=== PATIENT | female | born 1930 | race Caucasian/White ===

== ENCOUNTER 2016-04-07 06:58 | Emergency (ER) | payer OTHER ==
--- NOTE | 2016-04-07 07:05 | EDPHY ---
H & P Time Seen by Provider: 04/07/16 07:04 - Medical/Surgical History Hx Asthma: No Hx Chronic Respiratory Disease: Yes Hx Diabetes: No Hx Cardiac Disease: No Hx Renal Disease: No Hx Cirrhosis: No Hx Alcoholism: No Hx HIV/AIDS: No Hx Splenectomy or Spleen Trauma: No Other PMH: hyperlipidemia, COPD, Hypothyroidism - Social History Smoking Status: Former smoker Constitutional: Initial Vital Signs Temperature (C) 36.7 C 04/07/16 07:07 Heart Rate 67 04/07/16 07:07 Respiratory Rate 16 04/07/16 07:07 Blood Pressure 159/105 H 04/07/16 07:07 O2 Sat (%) 92 04/07/16 07:07 O2 Delivery Mode Room Air O2 (L/minute) 2 Allergies/Adverse Reactions: cephalexin monohydrate [From Keflex] Allergy (Verified 10/14/14 09:42) codeine Allergy (Verified 04/07/16 07:14) Home Medications: Medication Instructions Recorded Albuterol 02/20/14 Cholesterol Med 02/20/14 Spiriva Inhaler (RX) 02/20/14 THYROID 02/20/14 Hydrocodone/APAP 5/325 [Mobile 1 - 2 each PO Q4-6PRN PRN #20 tab 04/07/16 5/325] Medical Decision Making ED Course/Re-evaluation: CHIEF COMPLAINT: Fall, rib and flank pain HISTORY OF PRESENT ILLNESS: The patient is an 86 y/o female, with a history of COPD, arriving via EMS from [facility] complaining of left flank and rib pain secondary to a fall this morning. Per EMS, she walked to the bathroom and slipped on the floor early this morning. She fell backwards onto the bathtub and struck her left flank and was down for approximately an hour. She denies head strike, LOC, weakness or paresthesias. She was able to stand and walk to the pram with EMS assistance. She denies any preceding symptoms of chest pain, shortness of breath, or lightheadedness. Her pain now radiates to her left lateral ribs. She denies anticoagulant use. Reports regular bowel movements. REVIEW OF SYSTEMS: A 10 point review of systems was performed and is negative with the exception of the elements mentioned in the history of present illness. PHYSICAL EXAM: HR, BP, O2 Sat, RR. Temp noted General Appearance: Alert, well hydrated, appropriate, and non-toxic appearing. Head: Atraumatic without scalp tenderness or obvious injury Eyes: Pupils equal, round, reactive to light and accommodation, EOMI, no trauma , no injection. Ears: Clear bilaterally, no perforation, normal landmarks Nose: Atraumatic, no rhinorrhea, clear. Throat: There is no erythema or exudates, no lesions, normal tonsils, mucus membranes moist. Neck: Supple, 2+ carotid upstroke, nontender, no lymphadenopathy. Respiratory: No retractions, no distress, no wheezes, and no accessory muscle use. Lungs are clear to auscultation bilaterally. Cardiovascular: Regular rate and rhythm, no murmurs, rubs, or gallops. Bilateral carotid, radial, dorsalis pedis, and posterior tibial pulses intact. Good capillary refill all extremities. Gastrointestinal: Abdomen is soft, diffuse mild tenderness with associated distension, no masses, no rebound, no guarding, no peritoneal signs. Musculoskeletal: Normal active ROM of all extremities, atraumatic. Left lateral rib tenderness. Neurological: Alert, appropriate, and interactive. The patient has normal DTRs and non-focal cranial nerves, motor, sensory, and cerebellar exam. Skin: No rashes, good turgor, no nodules on palpation. Past medical history: COPD, breast cancer, arthritis, hyperlipidemia, hypothyroidism, on 2LPM home O2 chronically Past surgical history: knee replacement, "a whole bunch" of abdominal surgeries Family history: Noncontributory Social history: Lives at [facility] DIAGNOSTICS/PROCEDURES/CRITICAL CARE TIME: Study: CT of the Chest Indication: Pain, trauma Results: CT scan of the chest was obtained. The results of the study are 1. Nondisplaced fractures of posterior aspects of the left 10th and 11th ribs. 2. No pneumothorax, pleural effusion, or mediastinal hematoma. 3. Atherosclerotic aorta without aneurysm. 4. Multiple nonspecific noncalcified pulmonary nodules up to 8 mm in size with previous left mastectomy. Differential diagnosis includes pulmonary metastases versus noncalcified granulomata. Consider nuclear medicine PET scan imaging or follow up CT chest in 3 months and continued monitoring up to 2 years to ensure stability. 5. Old severe anterior wedge compression fracture T7 vertebral body with retropulsion. The study was read by the radiologist, Dr. Riley. I viewed the images myself on the PACS system. Study: CT of the Abdomen/Pelvis Indication: Pain, trauma, abd distension Results: CT scan of the abdomen was obtained. The results of the study are 1. Nondisplaced left 10th and 11th ribs. 2. Constipation. 3. No evidence of abdominal or pelvic hemorrhage or organ laceration. 4. Bilateral renal cysts. 5. Atherosclerotic aorta without aneurysm. 6. Left ovarian 3.1 x 2.6 cm cyst. Recommend follow up ultrasound in 3 months. The study was read by the radiologist, Dr. Riley. I viewed the images myself on the PACS system. Study: CT of the Lumbar Spine Indication: Pain, trauma Results: CT scan of the spine was obtained. The results of the study are 1. No acute lumbar compression fracture. 2. Thoracolumbar dextroscoliosis. 3. Multilevel mild to moderate degenerative disk disease and moderate to severe bilateral facet arthropathy resulting in multilevel mild to moderate central canal stenosis from L1-L2 through L4-L5 and variable multilevel neural foraminal stenosis, worse on the right at L5-S1. 4. Consider MRI of the lumbar spine if clinically indicated. The study was read by the radiologist, Dr. Riley. I viewed the images myself on the PACS system. Study: CT of the Thoracic Spine Indication: Pain, trauma Results: CT scan of the spine was obtained. The results of the study are 1. Old severe anterior wedge compression fracture of the T7 vertebral body with retropulsion causing mild to moderate central canal stenosis similar to chest x-ray from 2014. 2. No acute compression fractures. 3. If there is persistent pain or neurological deficit, recommend MR thoracic spine. The study was read by the radiologist, Dr. Riley. I viewed the images myself on the PACS system. DIFFERENTIAL DIAGNOSIS: The differential diagnosis for the patient's trauma included but was not limited to intracranial injury, long bone and pelvic bone fractures, spinal injury, intra-abdominal injury, and intra-thoracic injury. MEDICAL DECISION MAKING: This is a largely healthy 86 y/o female presenting to the ED after a mechanical fall onto a bathtub with 1-1.5 hour down time this morning. She denies preceding symptoms. She has left lateral rib tenderness and some diffuse mild abdominal tenderness and distension on exam. She is neurovascularly intact and breath sounds normal. IV established. Labs drawn including CHEM, INR. Plan for lumbar, thoracic, abdomen/pelvis, and chest CTs. 1 tab PO Mobile administered for pain. Patient's CTs show nondisplaced rib fractures and pulmonary nodules requiring follow up in 3 months. She will be discharged home with Vicodin and recommendation to follow up with her PCP this week. Return precautions given. She is comfortable with this plan. - Data Points Laboratory Results: Laboratory Results 04/07/16 07:11 04/07/16 07:11 04/07/16 07:11 WBC 10.06 H 10^3/uL (3.80-9.50) RBC 4.78 10^6/uL (4.18-5.33) Hgb 14.7 g/dL (12.6-16.3) Hct 46.4 % (38.0-47.0) MCV 97.1 fL (81.5-99.8) MCH 30.8 pg (27.9-34.1) MCHC 31.7 L g/dL (32.4-36.7) RDW 12.4 % (11.5-15.2) Plt Count 221 10^3/uL (150-400) MPV 9.1 fL (8.7-11.7) Neut % (Auto) 84.6 H % (39.3-74.2) Lymph % (Auto) 7.7 L % (15.0-45.0) Stone % (Auto) 6.1 % (4.5-13.0) Eos % (Auto) 0.5 L % (0.6-7.6) Baso % (Auto) 0.6 % (0.3-1.7) Nucleat RBC Rel Count 0.0 % (0.0-0.2) Absolute Neuts (auto) 8.52 H 10^3/uL (1.70-6.50) Absolute Lymphs (auto) 0.77 L 10^3/uL (1.00-3.00) Absolute Monos (auto) 0.61 10^3/uL (0.30-0.80) Absolute Eos (auto) 0.05 10^3/uL (0.03-0.40) Absolute Basos (auto) 0.06 10^3/uL (0.02-0.10) Absolute Nucleated RBC 0.00 10^3/uL (0-0.01) Immature Gran % 0.5 % (0.0-1.1) Immature Gran # 0.05 10^3/uL (0.00-0.10) Sodium 146 H mEq/L (134-144) Potassium 4.7 mEq/L (3.5-5.2) Chloride 108 mEq/L (97-110) Carbon Dioxide 27 mEq/l (22-31) Anion Gap 11 mEq/L (8-16) BUN 19 mg/dL (7-23) Creatinine 0.8 mg/dL (0.6-1.0) Estimated GFR > 60 Glucose 104 H mg/dL (70-100) Calcium 9.5 mg/dL (8.5-10.4) Medications Given: Discontinued Medications Acetaminophen/Hydrocodone Bitart (Mobile 5/325) 1 tab PO EDNOW ONE Stop: 04/07/16 07:21 Last Admin: 04/07/16 07:25 Dose: 1 tab Departure - Departure Disposition: Home, Routine, Self-Care Clinical Impression: Left rib fracture Condition: Good Instructions: Rib Fracture (ED) Additional Instructions: 1. Take Vicodin as prescribed for pain. 2. Follow up with your primary care provider in one week. 3. Return to the ED for severe pain, difficulty breathing, or other worsening of condition. 4. Your chest CT showed some lung nodules that require follow up CT or PET scan in 3 months. Discuss this with your primary care provider. Referrals: Spring Stafford MD [Medical Doctor] - As per Instructions Prescriptions: Hydrocodone/APAP 5/325 [Mobile 5/325] 1 - 2 each PO Q4-6PRN PRN #20 tab PRN Reason: Pain, Moderate Report Scribed for: Leoncio Rivas Report Scribed by: Yasmin Goodman Date of Report: 04/07/16 Time of Report: 07:17
[2016-04-07] MEDS ORDERED: IOPAMIDOL (ISOVUE-300) 100 ML BTL IV ONE (07:14)
[2016-04-07 07:19] LABS: % IMMATURE GRANULYOCYTES 0.5 % (0.0-1.1); ABSOLUTE IMMATURE GRANULOCYTES 0.05 10^3/uL (0.00-0.10); ADD DIFF? NO; ADD MORPH? NO; ADD SCAN? NO; ATYPICAL LYMPHOCYTE FLAG 0 (0-99); FRAGMENT RBC FLAG 0 (0-99); HEMATOCRIT 46.4 % (38.0-47.0); HEMOGLOBIN 14.7 g/dL (12.6-16.3); LEFT SHIFT FLG 0 (0-99); LIPEMIA HEMOLYSIS FLAG 80 (0-99); MEAN CELL HEMOGLOBIN 30.8 pg (27.9-34.1); MEAN CELL HEMOGLOBIN CONCENTR. 31.7 g/dL (32.4-36.7); MEAN CELL VOLUME 97.1 fL (81.5-99.8); MEAN PLATELET VOLUME 9.1 fL (8.7-11.7); PLATELET CLUMPS FLAG 0 (0-99); PLATELET COUNT 221 10^3/uL (150-400); RED BLOOD CELL COUNT 4.78 10^6/uL (4.18-5.33); RED CELL DISTRIBUTION WIDTH 12.4 % (11.5-15.2)
[2016-04-07] MEDS ORDERED: HYDROCODONE/APAP 5/325 TAB PO ONE (07:20)
[2016-04-07 07:45] LABS: ANION GAP 11 mEq/L (8-16); CALCIUM 9.5 mg/dL (8.5-10.4); CARBON DIOXIDE 27 mEq/l (22-31); CHLORIDE 108 mEq/L (97-110); CREATININE 0.8 mg/dL (0.6-1.0); GLOMERULAR FILTRATION RATE > 60; GLUCOSE 104 mg/dL (70-100); POTASSIUM 4.7 mEq/L (3.5-5.2); SODIUM 146 mEq/L (134-144)
[2016-04-07 09:42] VITALS: RESP 18
--- NOTE | 2016-04-07 09:43 | CT ---
CT Scan of the Abdomen and Pelvis (With Contrast) 0758 hours History: Fall on bathtub with left-sided chest and abdominal pain, back pain. Technique: Axial computed tomographic images of the chest, abdomen and pelvis were obtained with the uneventful intravenous administration of 90 mL Isovue-300 contrast. No oral or rectal contrast which limits the study. Dose reduction techniques were utilized. CT Abdomen Findings: Lung bases: Suspect nondisplaced fractures of the posterior aspect of the left 10th and 11th ribs. No pleural effusion. Liver: Normal. Biliary system: No obstruction. Spleen: No splenic laceration. Pancreas: Normal. Adrenals: Normal. Kidneys: No obstruction or solid masses.. Several bilateral renal cysts with the largest right renal cyst lower pole posterior cortex measuring 7 cm. Left parapelvic cysts. No solid exophytic lesions. 3 mm nonobstructing calculus upper pole calyx right kidney. Abdominal Aorta: Moderate atherosclerotic aorta and iliac arteries without aneurysm. No bowel obstruction, ascites, or significant retroperitoneal lymphadenopathy. CT Pelvis Findings: No evidence of retroperitoneal hematoma. Moderate stool in the colon consistent w ith constipation. Left ovarian cyst measuring 3.1 x 2.6 cm. Impression: 1. Nondisplaced left 10th and 11th ribs. 2. Constipation. 3. No evidence of abdominal or pelvic hemorrhage or organ laceration. 4. Bilateral renal cysts. 5. Atherosclerotic aorta without aneurysm. 6. Left ovarian 3.1 x 2.6 cm cyst. Recommend follow up ultrasound in 3 months. Findings and recommendations discussed with Emergency Department physician, Dr. Leoncio Rivas at 0840 hours today. Final report concurs with initial preliminary interpretation.
--- NOTE | 2016-04-07 09:57 | CT ---
CT Scan of the Chest (With Contrast) at 0758 hours History: Fall on bathtub with left-sided chest and abdominal pain, back pain. Technique: Axial computed tomographic images of the chest, abdomen and pelvis were obtained with the uneventful intravenous administration of 90 mL Isovue-300 contrast. No oral or rectal contrast which limits the study. Dose reduction techniques were utilized. Findings: Heart is normal in size without pericardial effusion. Moderate atherosclerotic calcificatio n of the aorta without aneurysm or dissection. No mediastinal hematoma. No pericardiac hematoma. No p leural effusion or pneumothorax. Suspect nondisplaced fractures of the left 10th and 11th ribs extension worker olaterally. Previous left mastectomy with surgical clips in the left axillary region. Several nonspec [facility] noncalcified pulmonary nodules including a left upper lobe 6 mm noncalcified pulmonary nodule im age 35 of series 11, left upper lobe 3 mm pulmonary nodule image 67 of series 11. Lingular 8 mm nonca lcified pulmonary nodule image 122 of series 11. Right azygous lobe. Pleuroparenchymal scarring in th e anterior basal segment of the right lower lobe. Right lower lobe 4 mm noncalcified pulmonary nodule image 100 of series 11. Right lower lobe 3 mm noncalcified pulmonary nodule image 89 of series 11. No acute pneumonia. Bilateral peribronchial thickening consistent with chronic bronchitis. Degenerati ve osteophytes in the thoracic spine. Previous severe compression fracture T7 vertebral body identifi ed on chest x-ray January 2014. Impression: 1. Nondisplaced fractures of posterior aspects of the left 10th and 11th ribs. 2. No pneumothorax, pleural effusion, or mediastinal hematoma. 3. Atherosclerotic aorta without aneurysm. 4. Multiple nonspecific noncalcified pulmonary nodules up to 8 mm in size with previous left mastecto my. Differential diagnosis includes pulmonary metastases versus noncalcified granulomata. Consider [facility] medicine PET scan imaging or follow up CT chest in 3 months and continued monitoring up to 2 ye ars to ensure stability. 5. Old severe anterior wedge compression fracture T7 vertebral body with retropulsion. Findings and recommendations discussed with Emergency Department physician, Dr. Leoncio Rivas at 0840 hours today. Final report concurs with initial preliminary interpretation.
--- NOTE | 2016-04-07 10:05 | CT ---
CT Scan of the Thoracic Spine With Contrast With Multiplanar Reconstructions Clinical Indications: Fall, pain. Fall and hit bathtub, back pain, left-sided rib and abdominal pain . Comparison: Chest x-ray 2013. Technique: Thinly collimated multidetector helical CT imaging of the thoracic spine was performed af ter the CT chest, abdomen, and pelvis with contrast and was reviewed in multiple planes. Multiplanar reconstructions reviewed on [employer] workstation and performed to better evaluate alignment. Dose reduc tion techniques were utilized. Findings: Old severe anterior wedge compression fracture with vertebral plana of the T7 vertebral amy dy, sclerotic changes, and retropulsion 5 mm resulting in mild to moderate central canal stenosis. No acute compression fractures of the thoracic spine. T6-T7 moderate degenerative disk disease with moderate disk space narrowing, circumferential osteophy gato resulting in mild central canal stenosis without neural foraminal stenosis. Rest of the thoracic disk spaces demonstrate mild degenerative disk disease without significant bony central canal or neural foraminal stenosis. Mild old compression deformity of the T5 vertebral body s uperior endplate versus Schmorl nodes similar to previous studies from 2014. C7-T1 moderate degenerative disk disease with ventral osteophytes. Irregularity at C6-C7 which may be secondary to prior surgery but is only partially visualized. Consider additional CT cervical spine i maging if clinically indicated. Impression: 1. Old severe anterior wedge compression fracture of the T7 vertebral body with retropulsion causing mild to moderate central canal stenosis similar to chest x-ray from 2014. 2. No acute compression fractures. 3. If there is persistent pain or neurological deficit, recommend MR thoracic spine. Findings and recommendations discussed with Emergency Department physician, Dr. Leoncio Rivas, at 0845 hours today. Final report concurs with initial preliminary interpretation.
[2016-04-07 10:09] VITALS: BP 132/86; PULSE 72; TEMP 99; O2SAT 97
--- NOTE | 2016-04-07 10:23 | CT ---
CT Scan of the Lumbar Spine With intravenous Contrast With Multiplanar Reconstructions at 0758 hours Clinical Indications: Fall, pain. Fall against bathtub, back pain, left chest and abdominal pain. Comparison: None. Technique: Thinly collimated multidetector helical CT imaging of the lumbar spine was performed with contrast after CT chest, abdomen and pelvis then reviewed in multiple planes. Multiplanar reconstruc tions reviewed on [employer] workstation and performed to better evaluate alignment. Dose reduction techn iques were utilized. Findings: No definite acute lumbar spine fracture. Moderate thoracolumbar dextroscoliosis. No destru ctive osseous lesions. T12-L1: Mild degenerative disk disease without significant stenosis. L1-L2: Moderate degenerative disk disease with dorsal disk/osteophyte complex and moderate left facet arthropathy resulting in mild to moderate central canal stenosis. L2-L3: Moderate degenerative disk disease with circumferential disk/osteophyte complex asymmetrically more prominent towards the left and moderate bilateral facet arthropathy resulting in mild to modera te central canal stenosis and moderate to severe left neural foraminal stenosis. L3-L4: Severe right facet arthropathy, moderate left facet arthropathy and mild disk bulge resulting in mild to moderate central canal stenosis. L4-L5: Severe bilateral facet arthropathy and mild degenerative disk disease resulting in mild to mod erate central canal stenosis. L5-S1: Severe bilateral facet arthropathy resulting in moderate to severe right neural foraminal sten osis and mild central canal stenosis. Impression: 1. No acute lumbar compression fracture. 2. Thoracolumbar dextroscoliosis. 3. Multilevel mild to moderate degenerative disk disease and moderate to severe bilateral facet arthr opathy resulting in multilevel mild to moderate central canal stenosis from L1-L2 through L4-L5 and v ariable multilevel neural foraminal stenosis, worse on the right at L5-S1. 4. Consider MRI of the lumbar spine if clinically indicated. Findings and recommendations discussed with Emergency Department physician, Dr. Leoncio Rivas, at 0840 hours today. Final report concurs with initial preliminary interpretation.
== END 2016-04-07 10:07 | disposition home or self-care (01) ==
LOC: EDBD → EDUNIT#
DX: S22.42XA Multiple fractures of ribs, left side, initial encounter for closed fracture (principal); Z87.891 Personal history of nicotine dependence; W01.198A Fall on same level from slipping, tripping and stumbling with subsequent striking against other object, initial encounter; Y92.002 Bathroom of unspecified non-institutional (private) residence as the place of occurrence of the external cause; Y93.01 Activity, walking, marching and hiking
CPT/HCPCS: 71260; 72129; 72132; 74177; 99285; Q9967

== ENCOUNTER 2016-08-15 14:16 | Emergency (ER) | payer OTHER ==
--- NOTE | 2016-08-15 15:00 | EDPHY ---
HPI/HX/ROS/PE/MDM Narrative: CHIEF COMPLAINT: Unexplained weight loss HPI: This patient is an 86-year-old female who presents to the Emergency Department via EMS from her living facility for apparent unexplained weight loss , as observed by her physical therapist who cares for the patient's chronic bilateral hip bursitis. Upon her arrival, she states that she is here for worsening bilateral hip pain. She also reports associated chronic low back pain. She denies abdominal pain, fever or chills, urinary complaints, or recent falls. Medical history includes COPD for which she is on 2L O2 at home. REVIEW OF SYSTEMS: Aside from elements discussed in the HPI, a comprehensive 10-point review of systems was reviewed and is negative. PMH: COPD, hypothyroidism, bilateral hip bursitis, hyperlipidemia. SOCIAL HISTORY: Lives at [facility]. PHYSICAL EXAM: General:Patient is alert, in no acute distress. ENT:Eyes are normal to inspection. ENT inspection normal. Neck: Normal inspection. Full range of motion. Respiratory:No respiratory distress. Breath sounds normal bilaterally. Cardiovascular: Regular rate and rhythm. Strong peripheral pulses. Normal cap refill. Abdomen:The abdomen is nontender to palpation. There are no peritoneal signs. There are normal bowel sounds. Back: Normal to inspection. No tenderness to palpation. Skin: Normal color. No rash. Warm and dry. Extremities: Full range of motion. Ecchymosis to right lower leg. Neuro: Oriented x3. Normal motor function. Normal sensory function. ED Course: 86-year-old female presents to the Emergency Department for evaluation of unexplained recent weight loss of 7 pounds as reported by her physical therapist who treats chronic hip and back pain. PT is concerned that she is not receiving adequate nutrition in current living facility. On exam, she is alert and answers all questions appropriately. She has ecchymosis to her lower leg but denies recent falls. No additional findings on exam. Will proceed with CBC and BMP and plan for case management consultation. Labs reviewed and are unremarkable. The patient is not currently in acute renal failure. I discussed the case with the Customer Care Specialist on site, who will further evaluate social concerns. The patient is felt to be appropriate for discharge back to her living facility. She is given regular diet and healthy eating instructions along with return precautions prior to discharge. She will be sent home in good condition. - Data Points Laboratory Results: Laboratory Results 08/15/16 15:23 08/15/16 15:23 17 08/15/16 15:23 15:23 WBC 8.27 10^3/uL 10^3/uL (3.80-9.50) RBC 4.93 10^6/uL 10^6/uL (4.18-5.33) Hgb 14.9 g/dL g/dL (12.6-16.3) Hct 46.9 % % (38.0-47.0) MCV 95.1 fL fL (81.5-99.8) MCH 30.2 pg pg (27.9-34.1) MCHC 31.8 g/dL L g/dL (32.4-36.7) RDW 13.0 % % (11.5-15.2) Plt Count 259 10^3/uL 10^3/uL (150-400) MPV 10.6 fL fL (8.7-11.7) Neut % (Auto) 78.0 % H % (39.3-74.2) Lymph % (Auto) 11.7 % L % (15.0-45.0) Mcdonald % (Auto) 7.5 % % (4.5-13.0) Eos % (Auto) 1.8 % % (0.6-7.6) Baso % (Auto) 0.6 % % (0.3-1.7) Nucleat RBC Rel Count 0.0 % % (0.0-0.2) Absolute Neuts (auto) 6.45 10^3/uL 10^3/uL (1.70-6.50) Absolute Lymphs (auto) 0.97 10^3/uL L 10^3/uL (1.00-3.00) Absolute Monos (auto) 0.62 10^3/uL 10^3/uL (0.30-0.80) Absolute Eos (auto) 0.15 10^3/uL 10^3/uL (0.03-0.40) Absolute Basos (auto) 0.05 10^3/uL 10^3/uL (0.02-0.10) Absolute Nucleated RBC 0.00 10^3/uL 10^3/uL (0-0.01) Immature Gran % 0.4 % % (0.0-1.1) Immature Gran # 0.03 10^3/uL 10^3/uL (0.00-0.10) Sodium 143 mEq/L mEq/L (134-144) Potassium 3.9 mEq/L mEq/L (3.5-5.2) Chloride 102 mEq/L mEq/L (97-110) Carbon Dioxide 29 mEq/l mEq/l (22-31) Anion Gap 12 mEq/L mEq/L (8-16) BUN 29 mg/dL H mg/dL (7-23) Creatinine 1.0 mg/dL mg/dL (0.6-1.0) Estimated GFR 52 Glucose 117 mg/dL H mg/dL (70-100) Calcium 9.9 mg/dL mg/dL (8.5-10.4) General Time Seen by Provider: 08/15/16 14:57 Initial Vital Signs: Initial Vital Signs Temperature (C) 37.1 C 08/15/16 14:28 Heart Rate 86 08/15/16 14:28 Respiratory Rate 15 08/15/16 14:28 Blood Pressure 138/90 H 08/15/16 14:28 O2 Sat (%) 95 08/15/16 14:28 O2 Delivery Mode Room Air Allergies/Adverse Reactions: cephalexin monohydrate [From [employer]] Allergy (Verified 10/14/14 09:42) codeine Allergy (Verified 04/07/16 07:14) Home Medications: Medication Instructions Recorded Albuterol 02/20/14 Cholesterol Med 02/20/14 Spiriva Inhaler (RX) 02/20/14 THYROID 02/20/14 Hydrocodone/APAP 5/325 [[place] 1 - 2 each PO Q4-6PRN PRN #20 tab 04/07/16 5/325] Departure - Departure Disposition: Home, Routine, Self-Care Clinical Impression: Anorexia Condition: Good Instructions: Regular Diet (ED) Additional Instructions: 1. Make sure to eat a regular diet as outlined for you in the attached packet. 2. Return to the Emergency Department for high fever, chills, pain when urinating, confusion, lightheadedness, increased weight loss, or for other serious concerns. Referrals: Karlene Mondragon MD [Primary Care Provider] - As per Instructions Report Scribed for: Rickey Naidu Report Scribed by: Shauna Marcelino Date of Report: 08/15/16 Time of Report: 15:00 Physician Review and Approval Statement: Portions of this note were transcribed by an ED scribe. I personally performed the history, physical exam, and medical decision making; and confirm the accuracy of the information in the transcribed note.
[2016-08-15 15:28] LABS: % IMMATURE GRANULYOCYTES 0.4 % (0.0-1.1); ABSOLUTE IMMATURE GRANULOCYTES 0.03 10^3/uL (0.00-0.10); ADD DIFF? NO; ADD MORPH? NO; ADD SCAN? NO; ATYPICAL LYMPHOCYTE FLAG 10 (0-99); FRAGMENT RBC FLAG 0 (0-99); HEMATOCRIT 46.9 % (38.0-47.0); HEMOGLOBIN 14.9 g/dL (12.6-16.3); LEFT SHIFT FLG 0 (0-99); LIPEMIA HEMOLYSIS FLAG 80 (0-99); MEAN CELL HEMOGLOBIN 30.2 pg (27.9-34.1); MEAN CELL HEMOGLOBIN CONCENTR. 31.8 g/dL (32.4-36.7); MEAN CELL VOLUME 95.1 fL (81.5-99.8); MEAN PLATELET VOLUME 10.6 fL (8.7-11.7); PLATELET CLUMPS FLAG 0 (0-99); PLATELET COUNT 259 10^3/uL (150-400); RED BLOOD CELL COUNT 4.93 10^6/uL (4.18-5.33)
[2016-08-15 15:40] LABS: ANION GAP 12 mEq/L (8-16); CALCIUM 9.9 mg/dL (8.5-10.4); CARBON DIOXIDE 29 mEq/l (22-31); CHLORIDE 102 mEq/L (97-110); GLOMERULAR FILTRATION RATE 52; GLUCOSE 117 mg/dL (70-100); POTASSIUM 3.9 mEq/L (3.5-5.2); SODIUM 143 mEq/L (134-144)
[2016-08-15 18:36] VITALS: BP 113/56; PULSE 80; RESP 16; TEMP 97.8; O2SAT 92
[2016-08-15] MEDS ORDERED: NS 500 ML IV ONE (18:37)
== END 2016-08-15 18:21 | disposition home or self-care (01) ==
LOC: EDUNIT#
DX: R63.0 Anorexia (principal); J44.9 Chronic obstructive pulmonary disease, unspecified

== ENCOUNTER 2016-12-06 10:54 | Emergency (ER) | payer OTHER ==
[2016-12-06 11:01] VITALS: RESP 16; TEMP 98.2
[2016-12-06] MEDS ORDERED: TDAP ADULT 0.5 ML INJ (BOOSTRIX) IM ONE (11:12)
--- NOTE | 2016-12-06 11:12 | EDPHY ---
H & P Stated Complaint[facility] Source: Patient - Personal History Current Tetanus/Diphtheria Vaccine: Unsure - Medical/Surgical History Hx Asthma: No Hx Chronic Respiratory Disease: Yes Hx Diabetes: No Hx Cardiac Disease: No Hx Renal Disease: No Hx Cirrhosis: No Hx Alcoholism: No Hx HIV/AIDS: No Hx Splenectomy or Spleen Trauma: No Other PMH: hyperlipidemia, COPD, Hypothyroidism, burcitis bilat hips. - Social History Smoking Status: Former smoker Time Seen by Provider: 12/06/16 11:10 HPI/ROS: HPI: This is a 86-year-old female who presents with Chief Complaint: fall and head injury Location: Head Quality: Injury Duration: Prior to arrival Signs and Symptoms: no LOC, no headache, no neck pain, + mild bleeding, no radiation, no numbness, no weakness, no tingling, no incontinence, no decreased range of motion Timing: Acute Severity: Mild Context: Patient presents to the emergency room via EMS after she was standing in her bathroom, stepped backwards and tripped over her rug. She then fell backwards hitting her head on her stand up shower door. She noted bleeding coming from the back of her head and mild soreness in the area. She denies headache at this time. She denies LOC. She had a home health aide visiting at the time who called EMS. Has a history of cervical fusion but denies neck pain. She has not take any blood thinners including aspirin. Aide at bedside states that she is at baseline mentation. Unsure of last tetanus. At baseline ambulation status. Modifying Factors: Direct pressure with complete relief of bleeding. Comment: ROS: Constitutional: No fever, no chills, no weight loss Eyes: No blurred vision Respiratory: No shortness of breath, no cough Cardiovascular: No chest pain Gastrointestinal: No nausea, no vomiting no diarrhea Genitourinary: No dysuria Extremities: No myalgias Neurologic: No weakness, no numbness Skin: No rashes Hematologic: No bruising, no bleeding MEDICAL/SURGICAL/SOCIAL HISTORY: Medical history: hyperlipidemia, COPD, Hypothyroidism, bursitis bilateral hips. Surgical history: Cervical fusion Social history: Has home health CONSTITUTIONAL: awake and alert, no obvious distress HEENT: 1 cm horizontal superficial laceration occipital area and normocephalic , PERRL, EOMI. no globe entrapment, no raccoon eyes. Tympanic membranes clear. No tympanic membrane rupture. Nares patent; no septal hematoma. Oropharynx clear, no exudate and moist pink mucosa. No malocclusion. no dental trauma. Airway patent. No lymphadenopathy. NECK: supple, no midline tenderness, flexion 45 degrees, extension 45 degrees, right and left lateral flexion 45 degrees. No meningismus. Cardiovascular: Normal S1/S2, regular rate, regular rhythm, without murmur rub or gallop. PULMONARY/CHEST: Symmetrical and nontender. no crepitus. Clear to auscultation bilaterally Good air movement. No accessory muscle usage. ABDOMEN: Soft, nondistended, nontender, no ecchymosis, no rebound, no guarding , no peritoneal signs, no masses or organomegaly. No CVAT. PELVIC: no pain with rocking; bilateral hips flexion 125 degrees, extension 30 degrees, with no pain internal rotation and no pain external rotation. BACK: No midline tenderness, no paraspinous spasm, deep tendon reflexes 2/2, no pain with straight leg raise EXTREMITIES: 2/2 pulses, right hip tenderness to palpation over the iliac crest ; no ecchymosis noted. Right hip full range of motion of flexion/internal rotation/external rotation with no pain. Leg lengths are equal. no deformities , no clubbing, no cyanosis or edema. NEUROLOGICAL: no focal neuro deficits. GCS 15. SKIN: Warm and dry, no erythema. no rash. Good capillary refill. (Afia Laboy) Constitutional: Initial Vital Signs Temperature (C) 36.8 C 12/06/16 10:58 Heart Rate 84 12/06/16 10:58 Respiratory Rate 16 12/06/16 10:58 Blood Pressure 159/79 H 12/06/16 10:58 O2 Sat (%) 92 12/06/16 10:58 O2 Delivery Mode Room Air O2 (L/minute) 2 Allergies/Adverse Reactions: cephalexin monohydrate [From Keflex] Allergy (Verified 10/14/14 09:42) codeine Allergy (Verified 04/07/16 07:14) Home Medications: Medication Instructions Recorded Albuterol 02/20/14 Cholesterol Med 02/20/14 Spiriva Inhaler (RX) 02/20/14 THYROID 02/20/14 Hydrocodone/APAP 5/325 [Gary 1 - 2 each PO Q4-6PRN PRN #20 tab 04/07/16 5/325] Medical Decision Making Procedures: Procedure: Laceration repair. Verbal consent was obtained from the patient. The occipital scalp 1 cm superficial laceration was NOT anesthetized in the usual fashion. The wound was irrigated, draped and explored to its base with a gloved finger. There were no deep structures involved. No foreign bodies identified. The wound was repaired with #1, staple. Good hemostasis was achieved and patient tolerated procedure well. The procedure was performed by myself. (Afia Laboy) ED Course/Re-evaluation: Head CT scan, cervical CT scan, laceration repair ordered Tetanus booster given 1230: Called by radiologist who advises head CT scan shows mild atrophy; but no acute intracranial process. CT cervical scan shows bony fusion at C5-C7, C5- C6 bony spurring noted with some cord enroachment; facet hypertrophy. Right hip x-ray my read via PACs shows no acute dislocation/fracture. Healed fracture left superior and inferior pubic ramus. Moderate facet hypertrophy lower lumbar spine on the right. Patient has politely declined needing any pain medication stronger than Tylenol. Aide at bedside says she patient has strong family support and she will relay all information to them and ensure proper follow up with primary care provider. Discussed extensively signs and symptoms of concussion. (Afia Laboy) Differential Diagnosis: Head injury including but not limited to concussion, skull fracture, intraparenchymal contusion, subarachnoid, subdural and epidural hematoma. (Afia Laoby) Other Provider: The patient was evaluated and managed by the Physician Hog Sawyer/ Nurse Practitioner. My co-signature indicates that I have reviewed this chart and I agree with the findings and plan of care as documented. I am the secondary supervising physician. (Ayanna Sotelo) - Data Points Medications Given: Discontinued Medications Diphtheria/Tetanus/Acell Pertussis (Boostrix) 0.5 ml IM .ONCE ONE Stop: 12/06/16 11:13 Last Admin: 12/06/16 12:36 Dose: 0.5 ml Departure - Departure Disposition: Home, Routine, Self-Care Clinical Impression: Scalp laceration, Accidental fall, Degenerative disc disease, cervical, Contusion of right hip, Contusion of scalp Condition: Good Instructions: Laceration (ED), Staple Care (ED) Additional Instructions: Keep the laceration clean and dry for the next 48 hours. After 48 hours, you may wash wound site with mild soap and water and pat dry. One staple was used today to close the laceration. You may return to the emergency room in 7 days to have it removed. Take Tylenol or Ibuprofen as needed for pain, headache. Apply ice for 30 minutes at a time; 2-3 times per day for the next 1-2 days. Please monitor for signs and symptoms of concussion. The images obtained in the emergency department today demonstrate no evidence of an obvious fracture or bleeding in your brain. Referrals: YANELI PEREA [Other] - As per Instructions
[2016-12-06 13:25] VITALS: BP 137/73; PULSE 77; O2SAT 97
== END 2016-12-06 13:23 | disposition home or self-care (01) ==
LOC: EDUNIT#
PROC: 0HQ0XZZ Repair Scalp Skin, External Approach (ICD-10-PCS; principal; 2016-12-06)
DX: S01.01XA Laceration without foreign body of scalp, initial encounter (principal); S70.01XA Contusion of right hip, initial encounter; M50.30 Other cervical disc degeneration, unspecified cervical region; J44.9 Chronic obstructive pulmonary disease, unspecified; Z87.891 Personal history of nicotine dependence; Z23 Encounter for immunization; W01.198A Fall on same level from slipping, tripping and stumbling with subsequent striking against other object, initial encounter; Y92.012 Bathroom of single-family (private) house as the place of occurrence of the external cause; Y99.8 Other external cause status; Y93.89 Activity, other specified

== ENCOUNTER 2017-01-03 17:58 | Emergency (ER) | payer OTHER ==
--- NOTE | 2017-01-03 18:08 | EDPHY ---
H & P Time Seen by Provider: 01/03/17 18:02 HPI/ROS: HPI Fall at home. 86-year-old female by ambulance from [facility]. She was maneuvering her walker around a corner. As she did so she fell backwards landing on her right side. She was then unable to get up. She denies any palpitations. No associated shortness of breath. She did not hit her head. No loss of consciousness. She denies any loss of sensation or weakness in her extremities. She has no complaints at this time ROS: Constitutional: No fever, no chills. No weakness. Eyes: No discharge. No changes in vision. ENT: No sore throat. No nasal congestion or rhinorrhea. Respiratory: No cough. No shortness of breath. Cardiac: No chest pain, no palpitations. Gastrointestinal: No abdominal pain, no vomiting, no diarrhea. Genitourinary: No hematuria. No dysuria or increased frequency with urination. Musculoskeletal: No back pain. No neck pain. No myalgias or arthralgias. Skin: No rashes. Neurological: No headache. No focal weakness or altered sensation. Past medical history: COPD and hypothyroidism. She is on 2-3 L of oxygen 24/ at home. Social history: Smoker. Denies alcohol. Here by herself. Lives alone at [facility]. Ambulates with a walker. Physical Exam: General Appearance: Alert, no distress. This patient is responding to questions appropriately and in full sentences. This patient appears well- hydrated and well-nourished. Head: Normocephalic atraumatic. Face: Facial bones are stable on palpation. Eyes: Pupils equal and round and reactive to light, no pallor or injection. No lid erythema or edema. ENT, Mouth: Mucous membranes moist. Dentition is intact. No malocclusion of the jaw. No tongue lacerations or abrasions. Pharynx is clear. The bilateral nasal canals are clear. No septal hematoma. Respiratory: There are no retractions, lungs are clear to auscultation with good air movement bilaterally. Chest wall is stable to AP and lateral palpation. Cardiovascular: Regular rate and rhythm. No murmur. Gastrointestinal: Abdomen is soft and nontender, no masses, bowel sounds normal. Neurological: Motor sensory function is intact. Cranial nerves are normal. Cerebellar function intact. Skin: Warm and dry, no rashes. No lacerations, abrasions or contusions. Musculoskeletal: Neck is supple and nontender. The trachea is midline. No midline cervical, thoracic, lumbar or sacral tenderness on palpation. No flank tenderness on palpation. Extremities are symmetrical, full range of motion. All joints in the bilateral upper and bilateral lower extremities range without pain or impingement. No tenderness on palpation of the long bones in the bilateral upper and bilateral lower extremities. Psychiatric: No agitation. No depression. Database: EKG: EKG time is 6:23 p.m.; EKG shows a narrow complex normal sinus rhythm with a ventricular rate of 72. The [place], QRS, QT intervals are within normal limits. There are no ST-T wave changes indicative of ischemic or injury pattern. No evidence of right heart strain. Interpreted by me. Imaging: Procedures: Emergency department course: Vital signs reviewed. No significant findings on physical exam. Her presentation is not consistent with syncope. She feels comfortable being discharged back to her assisted living facility. Follow-up was discussed with her. Return to emergency department precautions reviewed. All of her questions were answered. She was discharged in good condition. Differential Diagnosis: The differential diagnosis on this patient includes but is not limited to mechanical fall without significant injury. Syncope, arrhythmia This represents a partial list of diagnoses considered. These considerations are based on history, physical exam, past history, reassessment and diagnostic testing. Smoking Status: Former smoker Constitutional: Initial Vital Signs Temperature (C) 36.6 C 01/03/17 17:58 Heart Rate 76 01/03/17 17:58 Respiratory Rate 16 01/03/17 17:58 Blood Pressure 142/65 H 01/03/17 17:58 O2 Sat (%) 97 01/03/17 17:58 O2 Delivery Mode Room Air Allergies/Adverse Reactions: cephalexin monohydrate [From Keflex] Allergy (Verified 10/14/14 09:42) codeine Allergy (Verified 04/07/16 07:14) Home Medications: Medication Instructions Recorded Levothyroxine 01/03/17 Ocuvite Eye + Multi Tablet 01/03/17 Oxybutynin 01/03/17 Polyethylene Glycol 3350 01/03/17 Proair Hfa 01/03/17 SIMVASTATIN 01/03/17 Seroquel 01/03/17 Spiriva Inhaler (RX) 01/03/17 Departure - Departure Disposition: Home, Routine, Self-Care Clinical Impression: Fall at home Condition: Good Instructions: Fall Prevention for Older Adults (ED) Additional Instructions: Read and follow provided instructions. Follow-up with your primary care physician on Thursday or Thursday of this week as needed. Return to the emergency department for pain, headache or other serious concerns. Referrals: Patient,NotPresent [Primary Care Provider] - As per Instructions
[2017-01-03 18:18] VITALS: RESP 16
--- NOTE | 2017-01-03 18:25 | CPEKG ---
Heart Rate: 72 RR Interval: 833 P-R Interval: 121 QRSD Interval: 90 QT Interval: 396 QTC Interval: 434 P Fairburn: 0 QRS Fairburn: 66 T Wave Fairburn: 69 EKG Severity - NORMAL ECG - EKG Impression: SINUS RHYTHM Electronically Signed By: Caridad Lynch 03-Jan-2017 20:56:45
[2017-01-03 19:09] VITALS: BP 141/106; PULSE 77; TEMP 98.1; O2SAT 98
== END 2017-01-03 20:07 | disposition home or self-care (01) ==
LOC: EDUNIT#
DX: Z04.3 Encounter for examination and observation following other accident (principal); J44.9 Chronic obstructive pulmonary disease, unspecified; Z87.891 Personal history of nicotine dependence; W01.0XXA Fall on same level from slipping, tripping and stumbling without subsequent striking against object, initial encounter